=== PATIENT | female | born 1950 | race Caucasian/White ===

== ENCOUNTER 2017-12-08 05:45 | Day surgery (SDC) | payer OTHER ==
[~2017-12-08 05:45] MED LIST: INDERAL PO; OSTERA TABLET1 EACH PO; SYNTHROID88 MCG PO
[2017-12-08] MEDS ORDERED: NAPROXEN SODIU550 M1 PO (08:23)
== END 2017-12-08 11:25 | disposition home or self-care (01) ==
LOC: CIR.AMB 05:45
DX: N95.0 Postmenopausal bleeding (principal)